=== PATIENT | male | born 1950 | race Caucasian/White ===

== ENCOUNTER → 2024-07-31 08:42 | Outpatient (REF) | payer MEDICARE, OTHER, SELFPAY | LOC: RAD 08:42 | PROVIDERS: ATTENDING PHYSICIAN Physical Medicine & Rehabilitation; FAMILY PHYSICIAN Family Medicine | DX: M21.372 Foot drop, left foot (principal); M79.662 Pain in left lower leg | CPT/HCPCS: 76882 ==